=== PATIENT | female | born 1960 | race Caucasian/White ===

== ENCOUNTER 2017-01-23 09:11 | Emergency (ER) | payer MEDICAID | END 2017-01-23 09:30 | disposition left against medical advice (07) | DX: Z53.21 Procedure and treatment not carried out due to patient leaving prior to being seen by health care provider (principal) ==

== ENCOUNTER 2017-01-23 13:16 | Emergency (ER) | payer MEDICAID ==
[2017-01-23 13:34] VITALS: O2SAT 94
[2017-01-23] MEDS ORDERED: DEXAMETHASONE 4 MG TAB PO ONE (14:58)
--- NOTE | 2017-01-23 14:58 | EDPHY ---
H & P Stated Complaint: sore throat Time Seen by Provider: 01/23/17 13:36 HPI/ROS: Chief complaint: Sore throat History of present illness: This is a 56-year-old female who presents to the emergency department for evaluation of a sore throat. Patient reports she has had symptoms for the last 2 weeks. She did see her primary care doctor and was treated with a course of doxycycline. However symptoms persist. She is concerned because she is now losing her voice. She continues to have a runny nose. She has also noted a small nodule in her neck. She denies precipitating factors. She denies alleviating factors. She denies other associated signs or symptoms including no fevers, no cough, no difficulty swallowing or breathing, no rash. - Personal History Current Tetanus Diphtheria and Acellular Pertussis (TDAP): Yes - Medical/Surgical History Hx Asthma: Yes Hx Chronic Respiratory Disease: Yes Hx Diabetes: No Hx Cardiac Disease: No Hx Renal Disease: No Hx Cirrhosis: No Hx Alcoholism: No Hx HIV/AIDS: No Hx Splenectomy or Spleen Trauma: No Other PMH: sinus infection, dpression, ADHD,. Recent dx fibromyalgia ,chronic neck pain, asthma, PAUL - Social History Smoking Status: Never smoked - Physical Exam Exam: General Appearance: Alert, nontoxic. Eyes: Pupils equal and round no injection. ENT: Tympanic membranes, external auditory canals, external ears and surrounding soft tissue including over the mastoids are unremarkable. Nasopharynx is injected. There is clear rhinorrhea. Oropharynx is injected. There is no edema. There is no exudate. There is no asymmetry. The uvula is midline. No elevation of the tongue. There is no drooling, no trismus, no stridor. Patient does have decreased voice. Lymph: There is cervical adenopathy, this is well patient identifies as the nodule she has felt Respiratory: Chest is nontender, lungs are clear to auscultation. Cardiac: regular rate and rhythm. Musculoskeletal: Neck is supple and nontender. Extremities have full range of motion and are nontender. Skin: No rashes or lesions. Neurological: Alert and oriented x4. No meningismus. Constitutional: Initial Vital Signs Temperature (C) 36.9 C 01/23/17 13:29 Heart Rate 89 01/23/17 13:29 Respiratory Rate 16 01/23/17 13:29 Blood Pressure 154/101 H 05/07/17 13:29 O2 Sat (%) 94 01/23/17 13:29 O2 Delivery Mode Room Air Allergies/Adverse Reactions: Penicillins Allergy (Verified 12/06/14 18:58) tree nut [Nuts] Allergy (Verified 07/30/16 17:16) nuts Allergy (Uncoded 07/30/16 17:16) tuna Allergy (Uncoded 07/30/16 17:16) Home Medications: Medication Instructions Recorded Fluticasone/Salmeter 100/50Mcg 1 puffs IH BIDI 05/22/12 [Advair 100/50 (RX)] Methocarbamol [Robaxin 500 mg (RX)] 500 mg PO DAILY PRN 05/22/12 PARoxetine HCL [Paxil 20mg (RX)] 40 mg PO DAILY 05/22/12 clonazePAM [Klonopin] 2 mg PO DAILY 05/22/12 Adderall 10 MG (RX) 30 mg PO DAILY 11/10/13 Albuterol [Proventil Inhaler HFA 2 puffs IH Q4 PRN #1 mdi 11/24/14 (*)] Naproxen 500 mg PO DAILY PRN 07/30/16 SUMAtriptan [Imitrex 50 MG (RX)] 50 mg PO DAILY PRN 07/30/16 Medical Decision Making - Diagnostics Imaging Results: Imaging Impressions Soft Tissue Neck X-Ray 01/23/17 13:45 Impression: 1. No evidence of epiglottitis. 2. No prevertebral soft tissue swelling. 3. Moderate cervical spondylosis. Imaging: I viewed and interpreted images myself ED Course/Re-evaluation: Patient seen under the supervision of my secondary supervising physician Dr. Jose M Peoples. Patient presents to the emergency department for evaluation of persistent sore throat and now losing her voice. She is nontoxic. Afebrile and vital signs are stable. Physical exam is largely benign. No evidence of abscess formation. Soft tissue x-ray of the neck is unremarkable. Likely laryngitis. Will treat her symptomatically with Decadron. Do not believe antibiotics are warranted at this time. Patient is discharged home. Asked to follow up with her doctor for recheck. Return precautions are given. Patient voiced understanding and agreement with plan. Differential Diagnosis: Included but not limited to pharyngitis, pharyngitis, epiglottitis, [employer]ATING [employer], retropharyngeal abscess - Data Points Laboratory Results: 01/23/17 01/23/17 Unknown 15:05 Group A Strep Screen NEGATIVE (NEGATIVE) Group A Strep DNA Pending Medications Given: Discontinued Medications Dexamethasone (Decadron) 10 mg PO EDNOW ONE Stop: 01/23/17 14:59 Last Admin: 01/23/17 15:16 Dose: 10 mg Departure - Departure Disposition: Home, Routine, Self-Care Clinical Impression: Laryngitis Condition: Good Instructions: Laryngitis (ED) Additional Instructions: Follow-up with your primary care doctor for recheck If symptoms worsen or new symptoms develop return to the emergency room for recheck Referrals: Kelly Hoskins DO [Primary Care Provider] - As per Instructions
[2017-01-23 15:16] VITALS: BP 118/79; PULSE 70; RESP 14; TEMP 97.9
== END 2017-01-23 15:15 | disposition home or self-care (01) ==
DX: J04.0 Acute laryngitis (principal); J45.909 Unspecified asthma, uncomplicated

== ENCOUNTER 2017-02-20 18:38 | Emergency (ER) | payer MEDICAID ==
[2017-02-20 18:42] VITALS: TEMP 97.3
--- NOTE | 2017-02-20 18:47 | EDPHY ---
H & P Stated Complaint: diarrhea +SOB for a couple of wks Time Seen by Provider: 02/20/17 18:45 - Personal History Current Tetanus/Diphtheria Vaccine: Yes Current Tetanus Diphtheria and Acellular Pertussis (TDAP): Yes - Medical/Surgical History Hx Asthma: Yes Hx Chronic Respiratory Disease: Yes Hx Diabetes: No Hx Cardiac Disease: No Hx Renal Disease: No Hx Cirrhosis: No Hx Alcoholism: No Hx HIV/AIDS: No Hx Splenectomy or Spleen Trauma: No Other PMH: sinus infection, dpression, ADHD,. Recent dx fibromyalgia ,chronic neck pain, asthma, PAUL - Social History Smoking Status: Never smoked Constitutional: Initial Vital Signs Temperature (C) 36.3 C 02/20/17 18:40 Heart Rate 85 02/20/17 18:40 Respiratory Rate 14 02/20/17 18:40 Blood Pressure 142/54 H 02/20/17 18:40 O2 Sat (%) 98 02/20/17 18:40 Allergies/Adverse Reactions: Penicillins Allergy (Verified 12/06/14 18:58) tree nut [Nuts] Allergy (Verified 07/30/16 17:16) nuts Allergy (Uncoded 07/30/16 17:16) tuna Allergy (Uncoded 07/30/16 17:16) Home Medications: Medication Instructions Recorded Fluticasone/Salmeter 100/50Mcg 1 puffs IH BIDI 05/22/12 [Advair 100/50 (RX)] Methocarbamol [Robaxin 500 mg (RX)] 500 mg PO DAILY PRN 05/22/12 PARoxetine HCL [Paxil 20mg (RX)] 40 mg PO DAILY 05/22/12 clonazePAM [Klonopin] 2 mg PO DAILY 05/22/12 Adderall 10 MG (RX) 30 mg PO DAILY 11/10/13 Albuterol [Proventil Inhaler HFA 2 puffs IH Q4 PRN #1 mdi 11/24/14 (*)] Naproxen 500 mg PO DAILY PRN 07/30/16 SUMAtriptan [Imitrex 50 MG (RX)] 50 mg PO DAILY PRN 07/30/16 Medical Decision Making ED Course/Re-evaluation: CHIEF COMPLAINT: Dyspnea HISTORY OF PRESENT ILLNESS: The patient is a 56 y/o female, with a history of asthma, complaining of shortness of breath and is concerned she has pneumonia. She was diagnosed with laryngitis 6 weeks ago and complains of continued sore throat and dyspnea since that diagnosis. She stopped taking Klonopin, Paxil, and Adderall under the supervision of Dr. Hoskins about 3 weeks ago, and is wondering if she is continuing to go through withdrawal. She describes feeling like she has fluid in her lungs and wakes up "gasping for air." She denies cough , fever, vomiting, abdominal pain, diarrhea, chest pain. She does describe some vague malaise. REVIEW OF SYSTEMS: A 10 point review of systems was performed and is negative with the exception of the elements mentioned in the history of present illness. PHYSICAL EXAM: HR, BP, O2 Sat, RR. Temp noted General Appearance: Alert, well hydrated, appropriate, and non-toxic appearing. Head: Atraumatic without scalp tenderness or obvious injury Eyes: Pupils equal, round, reactive to light and accommodation, EOMI, no trauma , no injection. Nose: Atraumatic, no rhinorrhea, clear. Throat: There is no erythema or exudates, no lesions, normal tonsils, mucus membranes moist. Neck: Supple,nontender, no lymphadenopathy. Respiratory: No retractions, no distress, no wheezes, and no accessory muscle use. Lungs are clear to auscultation bilaterally. Cardiovascular: Regular rate and rhythm, no murmurs, rubs, or gallops. Good capillary refill all extremities. Gastrointestinal: Abdomen is soft, nontender, non-distended, no masses, no rebound, no guarding, no peritoneal signs. Musculoskeletal: Normal active ROM of all extremities, atraumatic. Neurological: Alert, appropriate, and interactive. nonfocal neuro exam. Skin: No rashes, good turgor, no nodules on palpation. Past medical history: Asthma, fibromyalgia, PAUL, sinusitis Past surgical history: denies Family history: noncontributory Social history: Lives in [place]. PCP: Dr. Hoskins DIFFERENTIAL DIAGNOSIS: The differential diagnosis for the patient's shortness of breath and hypoxemia included but was not limited to pneumonia, myocardial infarction, acute mountain sickness, high altitude pulmonary edema, congestive heart failure, and pulmonary embolus. MEDICAL DECISION MAKING: This is a 56 y/o female who presents with a 6-week history of dyspnea. She has been evaluated at the ED and by her PCP since symptom onset and reports she was diagnosed with laryngitis around the start of her symptoms. She's had no associated infectious symptoms and her lungs are completely clear on exam. She has a normal pharynx. She is afebrile. I suspect she is more likely suffering from anxiety after being taken off several psychiatric medications. My suspicion for acute respiratory or cardiac disease is low. Plan for ISTAT, strep swab, and saline nebulizer treatment. Reassessed patient. She feels improved and ready to go home. Labs unremarkable. She will be discharged home with recommendation to follow up with her PCP as needed for continued symptoms this week. Return precautions given. - Data Points Laboratory Results: 02/20/17 02/20/17 19:02 18:55 POC Hgb 15.3 gm/dL gm/dL (12.6-16.3) POC Hct 45 % % (38-47) POC Sodium 136 mEq/L mEq/L (134-144) POC Potassium 3.5 mEq/L mEq/L (3.3-5.0) POC Chloride 96 mEq/L L mEq/L (97-110) POC BUN 9 mg/dL mg/dL (7-23) POC Creatinine 0.6 mg/dL mg/dL (0.6-1.0) POC Glucose 89 mg/dL mg/dL (70-100) Group A Strep DNA Pending Point of Care Test Results: 02/20/17 19:02 POC Sodium 136 POC Potassium 3.5 POC Chloride 96 L POC BUN 9 POC Creatinine 0.6 POC Glucose 89 Departure - Departure Disposition: Home, Routine, Self-Care Clinical Impression: Dyspnea Qualifiers: Dyspnea type: shortness of breath Qualified Code(s): R06.02 - Shortness of breath Condition: Good Instructions: Dyspnea (ED) Additional Instructions: Follow up with your primary care provider for unimproved symptoms over the next 2-3 days. Return to the ED for any worsening of condition. Referrals: Kelly Hoskins DO [Primary Care Provider] - As per Instructions Report Scribed for: Maurizio Robert Report Scribed by: Celine Navarro Date of Report: 02/20/17 Time of Report: 19:47
[2017-02-20 20:55] VITALS: BP 132/76; PULSE 81; RESP 16; O2SAT 97
== END 2017-02-20 20:53 | disposition home or self-care (01) ==
DX: R06.00 Dyspnea, unspecified (principal); J45.909 Unspecified asthma, uncomplicated
CPT/HCPCS: 82947-QW

== ENCOUNTER 2017-02-28 16:09 | Emergency (ER) | payer MEDICAID ==
[2017-02-28 16:22] VITALS: BP 141/80; PULSE 89; RESP 18; TEMP 98.6; O2SAT 96
--- NOTE | 2017-02-28 16:55 | EDPHY ---
H & P Stated Complaint: sob chest tightness x 3 weeks, cant sleep, here same recently Time Seen by Provider: 02/28/17 16:25 HPI/ROS: CHIEF COMPLAINT: Insomnia HISTORY OF PRESENT ILLNESS: The patient is a 56-year-old female who comes to the emergency department complaining of in insomnia and stating that she feels like her body is going to break down. She has a several decade long history of insomnia. Several years ago in [place] she was placed on Klonopin and then Paxil to help her with her sleep. She was then placed on Adderall to help prefer more awake during the day. She also saw a sleep specialist to start her on CPAP but she states she cannot tolerate this. She states that about 2 months ago she stopped taking all of these medications because she does not feel like she needs to be on them. She however is had a very difficult time sleeping. She also states that she had a cold about 2 months ago and her voice change since that time and has not changed back. She has not had a fever. She has a history of asthma. She was seen here a week ago for shortness of breath and had a negative workup. She states that she feels short of breath now but that it is just anxiety. Her saturations are 97% on room air. No wheezing. No cough. REVIEW OF SYSTEMS: Constitutional: denies: chills, fever, recent illness, recent injury EENTM: denies: blurred vision, double vision, nose congestion Respiratory: See HPI Cardiac: denies: chest pain, irregular heart rate, lightheadedness, palpitations Gastrointestinal/Abdominal: denies: abdominal pain, diarrhea, nausea, vomiting, blood streaked stools Genitourinary: denies: dysuria, frequency, hematuria, pain Musculoskeletal: denies: joint pain, muscle pain Skin: denies: lesions, rash, jaundice, bruising Neurological: denies: headache, numbness, paresthesia, tingling, dizziness, weakness Hematologic/Lymphatic: denies: blood clots, easy bleeding, easy bruising Immunologic/allergic: denies: HIV/AIDS, transplant EXAM: GENERAL: Well-appearing, well-nourished and in no acute distress. HEAD: Atraumatic, normocephalic. EYES: Pupils equal round and reactive to light, extraocular movements intact, sclera anicteric, conjunctiva are normal. ENT: TMs normal, nares patent, oropharynx clear without exudates. Moist mucous membranes. NECK: Normal range of motion, supple without lymphadenopathy or JVD. LUNGS: Breath sounds clear to auscultation bilaterally and equal. No wheezes rales or rhonchi. HEART: Regular rate and rhythm without murmurs, rubs or gallops. ABDOMEN: Soft, nontender, normoactive bowel sounds. No guarding, no rebound. No masses appreciated. BACK: No CVA tenderness, no spinal tenderness, step-offs or deformities EXTREMITIES: Normal range of motion, no pitting or edema. No clubbing or cyanosis. NEUROLOGICAL: Cranial nerves II through XII grossly intact. Normal speech, normal gait. 5/5 strength, normal movement in all extremities, normal sensation PSYCH: Fatigued, oriented, normal affect SKIN: Warm, dry, normal turgor, no visible rashes or lesions. Source: Patient Exam Limitations: No limitations - Personal History Current Tetanus/Diphtheria Vaccine: Unsure Current Tetanus Diphtheria and Acellular Pertussis (TDAP): Unsure - Medical/Surgical History Hx Asthma: Yes Hx Chronic Respiratory Disease: Yes Hx Diabetes: No Hx Cardiac Disease: No Hx Renal Disease: No Hx Cirrhosis: No Hx Alcoholism: No Hx HIV/AIDS: No Hx Splenectomy or Spleen Trauma: No Other PMH: sinus infection, depression, ADHD-stopped adderall,. Recent dx fibromyalgia ,chronic neck pain, asthma, PAUL - Family History Significant Family History: No pertinent family hx - Social History Smoking Status: Never smoked Alcohol Use: Sober Drug Use: None Constitutional: Initial Vital Signs Temperature (C) 37.0 C 02/28/17 16:20 Heart Rate 89 02/28/17 16:20 Respiratory Rate 18 02/28/17 16:20 Blood Pressure 141/80 H 02/28/17 16:20 O2 Sat (%) 96 02/28/17 16:20 O2 Delivery Mode Room Air Allergies/Adverse Reactions: Penicillins Allergy (Verified 12/06/14 18:58) tree nut [Nuts] Allergy (Verified 07/30/16 17:16) nuts Allergy (Uncoded 07/30/16 17:16) tuna Allergy (Uncoded 07/30/16 17:16) Home Medications: Medication Instructions Recorded Fluticasone/Salmeter 100/50Mcg 1 puffs IH BIDI 09/03/12 [Advair 100/50 (RX)] Methocarbamol [Robaxin 500 mg (RX)] 500 mg PO DAILY PRN 05/22/12 Albuterol [Proventil Inhaler HFA 2 puffs IH Q4 PRN #1 mdi 11/24/14 (*)] SUMAtriptan [Imitrex 50 MG (RX)] 50 mg PO DAILY PRN 07/30/16 Promethazine HCl [Phenergan 25mg 25 mg PO HS PRN #10 tab 02/28/17 (RX)] Medical Decision Making ED Course/Re-evaluation: The patient is primarily complaining about insomnia and feeling like her "body is going to breakdown" if she cannot get enough sleep. She has stable vital signs and a normal exam. She is very resistant to going back on to sleep medications. I did suggest that she follow up with a sleep specialist to discuss other options. She agrees with this plan. She suggested taking Phenergan which is helped her with migraines in the past and also made her sleep. I will prescribe her a short course of Phenergan until she can follow up with the sleep specialist. She and her friend are happy with this plan and declines any further workup or testing. Differential Diagnosis: Partial list of the Differential diagnosis considered include but were not limited to; depression, insomnia, anxiety, bronchitis, withdrawal, asthma exacerbation and although unlikely based on the history and physical exam, I also considered pneumonia, pneumothorax, acute coronary disease. I discussed these differential diagnoses and the plan with the patient as well as the usual and expected course. The patient understands that the diagnosis is provisional and that in medicine we are not always correct and that further workup is often warranted. Usual and customary warnings were given. All of the patient's questions were answered. The patient was instructed to return to the emergency department should the symptoms at all worsen or return, otherwise to followup with the physician as we discussed. Departure - Departure Disposition: Home, Routine, Self-Care Clinical Impression: Insomnia disorder Qualifiers: Insomnia type: unspecified Qualified Code(s): G47.00 - Insomnia, unspecified Condition: Fair Instructions: Insomnia (ED) Referrals: NONE *PRIMARY CARE P,. [Primary Care Provider] - As per Instructions MITALI MATUTE MD [Medical Doctor] - As per Instructions Prescriptions: Promethazine HCl [Phenergan 25mg (RX)] 25 mg PO HS PRN #10 tab PRN Reason: Nausea & Vomiting
== END 2017-02-28 17:00 | disposition home or self-care (01) ==
DX: G47.00 Insomnia, unspecified (principal); J45.909 Unspecified asthma, uncomplicated

== ENCOUNTER 2017-03-06 08:49 | Emergency (ER) | payer MEDICAID ==
[2017-03-06] MEDS ORDERED: NS 1,000 ML IV ONE (09:05)
[2017-03-06] MEDS ORDERED: ONDANSETRON 4 MG/2 ML VIAL IVP ONE (09:05)
--- NOTE | 2017-03-06 09:10 | EDPHY ---
H & P Stated Complaint: low back pain/seen tuesday at ed/tuesday at pcp/not better Time Seen by Provider: 03/06/17 09:00 HPI/ROS: Chief complaint: Low back pain History of present illness: This is a 56-year-old female who presents to the emergency department for evaluation of low back pain. Patient reports symptoms have been going on for the last few weeks. She feels they are worsening. She is concerned she has a problem with her kidneys. She denies precipitating factors. She denies alleviating or aggravating factors. She denies associated signs or symptoms including no urinary symptoms, no nausea, vomiting, no diarrhea or constipation, no fevers. Further patient reports she developed some chest pain this morning when she woke up. She reports very quick, sharp pains in her chest that have resolved. She denies precipitating factors for the chest pain. She denies other associated signs or symptoms including no cough, no shortness of breath, no pain or swelling in the legs. There is no history of trauma. Review of systems: A 10 point review of systems was obtained and other than described above was negative - Personal History Current Tetanus/Diphtheria Vaccine: Yes - Medical/Surgical History Hx Asthma: Yes Hx Chronic Respiratory Disease: Yes Hx Diabetes: No Hx Cardiac Disease: No Hx Renal Disease: No Hx Cirrhosis: No Hx Alcoholism: No Hx HIV/AIDS: No Hx Splenectomy or Spleen Trauma: No Other PMH: sinus infection, depression, ADHD-stopped adderall,. Recent dx fibromyalgia ,chronic neck pain, asthma, PAUL - Social History Smoking Status: Never smoked - Physical Exam Exam: General Appearance: Alert, no distress. Eyes: Pupils equal and round no pallor or injection. ENT, Mouth: Mucous membranes moist. Respiratory: There are no retractions, lungs are clear to auscultation. Cardiovascular: Regular rate and rhythm. Gastrointestinal: Abdomen is soft and nontender, no masses, bowel sounds normal. Genitourinary: No CVA tenderness. No suprapubic tenderness. Neurological: Alert and oriented x4. Cranial nerves 2-12 grossly intact. Strength and sensation intact and symmetrical. Skin: Warm and dry, no rashes. Musculoskeletal: Neck is supple nontender. The spine and back are nontender to palpation, no crepitus, bony deformity or step-off appreciated. Extremities are symmetrical, full range of motion. Psychiatric: Patient is oriented X 3, there is no agitation. Constitutional: Initial Vital Signs Temperature (C) 36.4 C 03/06/17 08:53 Heart Rate 78 03/06/17 08:53 Respiratory Rate 16 03/06/17 08:53 Blood Pressure 114/86 H 03/06/17 08:53 O2 Sat (%) 97 03/06/17 08:53 O2 Delivery Mode Room Air Allergies/Adverse Reactions: Penicillins Allergy (Verified 03/06/17 08:53) tree nut [Nuts] Allergy (Verified 03/06/17 08:53) nuts Allergy (Uncoded 07/30/16 17:16) tuna Allergy (Uncoded 07/30/16 17:16) Home Medications: Medication Instructions Recorded Fluticasone/Salmeter 100/50Mcg 1 puffs IH BIDI 05/22/12 [Advair 100/50 (RX)] Methocarbamol [Robaxin 500 mg (RX)] 500 mg PO DAILY PRN 05/22/12 Albuterol [Proventil Inhaler HFA 2 puffs IH Q4 PRN #1 mdi 11/24/14 (*)] SUMAtriptan [Imitrex 50 MG (RX)] 50 mg PO DAILY PRN 07/30/16 Promethazine HCl [Phenergan 25mg 25 mg PO HS PRN #10 tab 02/28/17 (RX)] Medical Decision Making - Diagnostics Imaging Results: Imaging Impressions Chest X-Ray 03/06/17 10:43 Impression: No evidence of acute cardiopulmonary abnormality. Abdomen/Pelvis CT 03/06/17 11:59 Impression: 1. Mild diverticulosis without evidence for diverticulitis. Moderate constipation. 2. No evidence for nephrolithiasis or hydronephrosis. 3. Mild multilevel degenerative change lumbar spine. Results called and discussed with Jesus Dunne PA-C on March 06, 2017 at 1316 hours. Attention: This CT examination is specifically designed to evaluate patients who are clinically suspected of having acute obstructive uropathy. This examination does not use radiographic contrast, and as such, provides only a limited evaluation of the abdomen, pelvis, and retroperitoneum. If there is further clinical suspicion for pathological conditions other than obstructive uropathy, a complete CT evaluation of the abdomen and pelvis utilizing intravenous, oral, and rectal contrast should be considered. Imaging: Discussed imaging studies w/ call center recruiter Radiologist ED Course/Re-evaluation: Patient is discussed with my primary supervising physician Dr. Deepthi Arellano. Patient presents to the emergency department for low back pain. On presentation she is nontoxic. Afebrile and vital signs are stable. Physical exam is benign. Abdominal laboratory studies are largely unremarkable. Urinalysis does show hematuria, patient is not currently on her menstrual cycle. A CT scan of the abdomen and pelvis is pursued for possible nephrolithiasis, no acute findings are noted. Further patient with sharp chest pain intermittently that has resolved. His atypical chest pain. Again vital signs are stable. Physical exam is benign. Troponin negative, EKG unremarkable and chest x-ray negative. Perc negative for PE. Do not appreciate need for further emergency department intervention or inpatient management. I have discussed is not clear as to the exact cause of her symptoms and she needs to follow up with her primary care doctor for continued evaluation and care. Strict return precautions are given. Patient voiced understanding and agreement with plan. Differential Diagnosis: Included but not limited to musculoskeletal pain, cystitis, pyelonephritis, nephrolithiasis, intra-abdominal pathology such as colitis, gastritis, biliary tract disease or pancreatitis as well as musculoskeletal pain of the chest, pulmonary infections, pneumothorax, cardiac dysrhythmias, unlikely ACS or PE, patient is perc negative for PE - Data Points Laboratory Results: Laboratory Results 03/06/17 09:45 03/06/17 09:45 03/06/17 03/06/17 03/06/17 09:45 09:45 09:45 WBC 7.75 10^3/uL 10^3/uL (3.80-9.50) RBC 4.47 10^6/uL 10^6/uL (4.18-5.33) Hgb 14.5 g/dL g/dL (12.6-16.3) Hct 42.9 % % (38.0-47.0) MCV 96.0 fL fL (81.5-99.8) MCH 32.4 pg pg (27.9-34.1) MCHC 33.8 g/dL g/dL (32.4-36.7) RDW 12.3 % % (11.5-15.2) Plt Count 269 10^3/uL 10^3/uL (150-400) MPV 9.4 fL fL (8.7-11.7) Neut % (Auto) 63.5 % % (39.3-74.2) Lymph % (Auto) 16.6 % % (15.0-45.0) [place] % (Auto) 7.6 % % (4.5-13.0) Eos % (Auto) 11.6 % H % (0.6-7.6) Baso % (Auto) 0.4 % % (0.3-1.7) Nucleat RBC Rel Count 0.0 % % (0.0-0.2) Absolute Neuts (auto) 4.92 10^3/uL 10^3/uL (1.70-6.50) Absolute Lymphs (auto) 1.29 10^3/uL 10^3/uL (1.00-3.00) Absolute Monos (auto) 0.59 10^3/uL 10^3/uL (0.30-0.80) Absolute Eos (auto) 0.90 10^3/uL H 10^3/uL (0.03-0.40) Absolute Basos (auto) 0.03 10^3/uL 10^3/uL (0.02-0.10) Absolute Nucleated RBC 0.00 10^3/uL 10^3/uL (0-0.01) Immature Gran % 0.3 % % (0.0-1.1) Immature Gran # 0.02 10^3/uL 10^3/uL (0.00-0.10) Sodium 136 mEq/L mEq/L (134-144) Potassium 4.2 mEq/L mEq/L (3.5-5.2) Chloride 102 mEq/L mEq/L (97-110) Carbon Dioxide 25 mEq/l mEq/l (22-31) Anion Gap 9 mEq/L mEq/L (8-16) BUN 22 mg/dL mg/dL (7-23) Creatinine 0.8 mg/dL mg/dL (0.6-1.0) Estimated GFR > 60 Glucose 88 mg/dL mg/dL (70-100) Calcium 10.0 mg/dL mg/dL (8.5-10.4) Total Bilirubin 0.6 mg/dL mg/dL (0.1-1.4) Conjugated Bilirubin 0.3 mg/dL mg/dL (0.0-0.5) Unconjugated Bilirubin 0.3 mg/dL mg/dL (0.0-1.1) AST 23 IU/L IU/L (14-46) ALT 28 IU/L IU/L (9-52) Alkaline Phosphatase 95 IU/L IU/L (38-126) Troponin I < 0.012 ng/mL ng/mL (0-0.034) Total Protein 7.0 g/dL g/dL (6.3-8.2) Albumin 4.1 g/dL g/dL (3.5-5.0) Lipase 149.0 IU/L IU/L (23-300) Beta HCG, Qual NEGATIVE Urine Color Urine Appearance Urine pH Ur Specific [place] Urine Protein Urine Ketones Urine Blood Urine Nitrate Urine Bilirubin Urine Urobilinogen Ur Leukocyte Esterase Urine RBC Urine WBC Ur Epithelial Cells Urine Mucus Urine Glucose 03/06/17 09:08 WBC RBC Hgb Hct MCV MCH MCHC RDW Plt Count MPV Neut % (Auto) Lymph % (Auto) [place] % (Auto) Eos % (Auto) Baso % (Auto) Nucleat RBC Rel Count Absolute Neuts (auto) Absolute Lymphs (auto) Absolute Monos (auto) Absolute Eos (auto) Absolute Basos (auto) Absolute Nucleated RBC Immature Gran % Immature Gran # Sodium Potassium Chloride Carbon Dioxide Anion Gap BUN Creatinine Estimated GFR Glucose Calcium Total Bilirubin Conjugated Bilirubin Unconjugated Bilirubin AST ALT Alkaline Phosphatase Troponin I Total Protein Albumin Lipase Beta HCG, Qual Urine Color YELLOW Urine Appearance CLEAR Urine pH 5.0 (5.0-7.5) Ur Specific [place] 1.014 (1.002-1.030) Urine Protein NEGATIVE (NEGATIVE) Urine Ketones NEGATIVE (NEGATIVE) Urine Blood 1+ H (NEGATIVE) Urine Nitrate NEGATIVE (NEGATIVE) Urine Bilirubin NEGATIVE (NEGATIVE) Urine Urobilinogen NEGATIVE EU EU (0.2-1.0) Ur Leukocyte Esterase NEGATIVE (NEGATIVE) Urine RBC 25-50 /hpf H /hpf (0-3) Urine WBC 1-3 /hpf /hpf (0-3) Ur Epithelial Cells NONE SEEN /lpf /lpf (NONE-1+) Urine Mucus TRACE /lpf /lpf (NONE-1+) Urine Glucose NEGATIVE (NEGATIVE) Medications Given: Discontinued Medications Sodium Chloride (Ns) 1,000 mls @ 0 mls/hr IV ONCE ONE; Wide Open PRN Reason: Protocol Stop: 03/06/17 09:06 Last Admin: 03/06/17 09:35 Dose: 1,000 mls Ondansetron HCl (Zofran) 4 mg IVP EDNOW ONE Stop: 03/06/17 09:06 Last Admin: 03/06/17 09:36 Dose: 4 mg Departure - Departure Disposition: Home, Routine, Self-Care Clinical Impression: Back pain, Chest pain, Hematuria Condition: Good Instructions: Chest Pain (ED), Hematuria (ED), Acute Low Back Pain (ED) Additional Instructions: Follow-up with your primary care doctor for continued evaluation and care If symptoms worsen or new symptoms develop return to the emergency room for recheck Referrals: Kelly Hoskins DO [Primary Care Provider] - As per Instructions
--- NOTE | 2017-03-06 09:23 | CPEKG ---
Heart Rate: 71 RR Interval: 845 P-R Interval: 128 QRSD Interval: 80 QT Interval: 384 QTC Interval: 418 P [place]: 60 QRS [place]: 44 T Wave [place]: 42 EKG Severity - OTHERWISE NORMAL ECG - EKG Impression: SINUS RHYTHM EKG Impression: VENTRICULAR PREMATURE COMPLEX Electronically Signed By: Deepthi Arellnao 06-Mar-2017 11:46:16
[2017-03-06 09:56] LABS: % IMMATURE GRANULYOCYTES 0.3 % (0.0-1.1); ABSOLUTE IMMATURE GRANULOCYTES 0.02 10^3/uL (0.00-0.10); ADD DIFF? NO; ADD MORPH? NO; ADD SCAN? NO; ATYPICAL LYMPHOCYTE FLAG 10 (0-99); FRAGMENT RBC FLAG 0 (0-99); HEMATOCRIT 42.9 % (38.0-47.0); HEMOGLOBIN 14.5 g/dL (12.6-16.3); LEFT SHIFT FLG 0 (0-99); LIPEMIA HEMOLYSIS FLAG 90 (0-99); MEAN CELL HEMOGLOBIN 32.4 pg (27.9-34.1); MEAN CELL HEMOGLOBIN CONCENTR. 33.8 g/dL (32.4-36.7); MEAN PLATELET VOLUME 9.4 fL (8.7-11.7); PLATELET CLUMPS FLAG 0 (0-99); PLATELET COUNT 269 10^3/uL (150-400); RED BLOOD CELL COUNT 4.47 10^6/uL (4.18-5.33); RED CELL DISTRIBUTION WIDTH 12.3 % (11.5-15.2)
[2017-03-06 10:09] LABS: ALANINE AMINOTRANSFERASE 28 IU/L (9-52); ALBUMIN 4.1 g/dL (3.5-5.0); ALKALINE PHOSPHATASE 95 IU/L (38-126); ANION GAP 9 mEq/L (8-16); ASPARTATE AMINOTRANSFERASE 23 IU/L (14-46); BILIRUBIN,TOTAL 0.6 mg/dL (0.1-1.4); BILIRUBIN-CONJUGATED 0.3 mg/dL (0.0-0.5); BILIRUBIN-UNCONJUGATED 0.3 mg/dL (0.0-1.1); CARBON DIOXIDE 25 mEq/l (22-31); CHLORIDE 102 mEq/L (97-110); CREATININE 0.8 mg/dL (0.6-1.0); GLOMERULAR FILTRATION RATE > 60; GLUCOSE 88 mg/dL (70-100); POTASSIUM 4.2 mEq/L (3.5-5.2); SODIUM 136 mEq/L (134-144)
[2017-03-06 10:19] LABS: TROPONIN I < 0.012 ng/mL (0-0.034)
[2017-03-06 11:52] LABS: COLOR YELLOW; LEUKOCYTE ESTERASE,URINE NEGATIVE (NEGATIVE); NITRITE,URINE NEGATIVE (NEGATIVE)
[2017-03-06 11:55] LABS: MUCUS TRACE /lpf (NONE-1+); RBC,URINE 25-50 /hpf (0-3)
[2017-03-06 13:53] VITALS: BP 128/72; PULSE 81; RESP 16; TEMP 96.8; O2SAT 98
== END 2017-03-06 13:53 | disposition home or self-care (01) ==
DX: M54.5 Low back pain (principal); R07.9 Chest pain, unspecified; R31.9 Hematuria, unspecified; J45.909 Unspecified asthma, uncomplicated
CPT/HCPCS: 96374; J2405

== ENCOUNTER 2017-03-19 16:37 | Emergency (ER) | payer MEDICAID ==
[2017-03-19 16:43] VITALS: BP 153/97; PULSE 81; RESP 20; TEMP 98.1; O2SAT 97
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
== END 2017-03-19 18:13 | disposition home or self-care (01) ==
DX: F41.9 Anxiety disorder, unspecified (principal); J45.909 Unspecified asthma, uncomplicated
CPT/HCPCS: 80305

== ENCOUNTER 2017-03-23 10:03 | Observation (INO) | payer MEDICAID ==
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
--- NOTE | 2017-03-23 10:19 | CPEKG ---
Heart Rate: 73 RR Interval: 822 P-R Interval: 136 QRSD Interval: 86 QT Interval: 368 QTC Interval: 406 P [place]: 65 QRS [place]: 62 T Wave [place]: 41 EKG Severity - NORMAL ECG - EKG Impression: SINUS RHYTHM Electronically Signed By: Maurizio Robert 23-Mar-2017 14:47:37
[2017-03-23 10:51] LABS: % IMMATURE GRANULYOCYTES 0.3 % (0.0-1.1); ABSOLUTE IMMATURE GRANULOCYTES 0.02 10^3/uL (0.00-0.10); ADD DIFF? NO; ADD MORPH? NO; ADD SCAN? NO; ATYPICAL LYMPHOCYTE FLAG 20 (0-99); FRAGMENT RBC FLAG 0 (0-99); HEMATOCRIT 43.5 % (38.0-47.0); HEMOGLOBIN 15.1 g/dL (12.6-16.3); LEFT SHIFT FLG 0 (0-99); LIPEMIA HEMOLYSIS FLAG 90 (0-99); MEAN CELL HEMOGLOBIN 32.7 pg (27.9-34.1); MEAN CELL HEMOGLOBIN CONCENTR. 34.7 g/dL (32.4-36.7); MEAN CELL VOLUME 94.2 fL (81.5-99.8); MEAN PLATELET VOLUME 9.5 fL (8.7-11.7); PLATELET CLUMPS FLAG 0 (0-99); PLATELET COUNT 304 10^3/uL (150-400); RED BLOOD CELL COUNT 4.62 10^6/uL (4.18-5.33); RED CELL DISTRIBUTION WIDTH 12.3 % (11.5-15.2)
[2017-03-23 11:09] LABS: ANION GAP 11 mEq/L (8-16); CALCIUM 10.1 mg/dL (8.5-10.4); CARBON DIOXIDE 23 mEq/l (22-31); CHLORIDE 104 mEq/L (97-110); CREATININE 0.9 mg/dL (0.6-1.0); GLOMERULAR FILTRATION RATE > 60; GLUCOSE 95 mg/dL (70-100); POTASSIUM 4.1 mEq/L (3.5-5.2); SODIUM 138 mEq/L (134-144)
[2017-03-23] MEDS ORDERED: ACETAMINOPHEN 325 MG TAB PO PRN (13:21)
[2017-03-23] MEDS ORDERED: IBUPROFEN 200 MG TAB PO PRN (13:21)
[2017-03-23] MEDS ORDERED: ONDANSETRON DISINTEGRATING 4 MG TAB PO PRN (13:21)
[2017-03-23] MEDS ORDERED: ALBUTEROL 60 PUFFS/8 GM MDI IH PRN (17:58)
[2017-03-23] MEDS ORDERED: NS W/ 20 KCl/L 1,000 ML IV SCH (18:00)
--- NOTE | 2017-03-23 19:51 | GHP ---
[f rep st] HISTORY AND PHYSICAL DATE OF ADMISSION: 03/23/2017 CHIEF COMPLAINT: "Feels bizarre". HISTORY OF PRESENT ILLNESS: The patient is a 56-year-old female who has been to the emergency department and her primary doctor's several times in the last few months because of having trouble coming off chronic benzodiazepine and SSRI treatment. She has taken Klonopin for 23 year and Paxil for 20 years. At the suggestion of a [place] physician friend, she has been slowly weaning off these medications over the last several months. She says she has not taken any Klonopin or Paxil for about 7 weeks. She has similarly been trying to wean herself off Adderall and says she has not taken that for about 5 weeks. She said she has felt 'pretty terrible' during this whole process. She said for a brief moment on Tuesday, she felt "back to her old self" but then shortly thereafter started to feel "bizarre" again. By Tuesday she was having spasms, felt uncoordinated, like she was drunk, was feeling dizzy and confused. She came into the emergency department on Tuesday for these symptoms, was evaluated and discharged home to follow up with her primary care provider at [facility]. She took a tablet of Lexapro on Tuesday (this had been given to her about 10 days prior by her primary care provider, and she had only taken 2 dosages since then). She did not think that helped at all, so she went in to see the [facility] on Tuesday (2 days ago). She did not see her regular provider that day, but the provider she saw asked her to try a tablet of olanzapine. She is not sure of the milligram dosage, but she said that she took about 1/4 of a tablet. She said this did not really seem to help and she woke up on Tuesday feeling 'very bizarre' again. She describes tripping in her bedroom and waking up at an unknown time later, she has some bruising on legs and soreness from the fall. Today she was trying to "tough it out" and get in to see her primary doctor, but they were unable to see her. She started to feel worse, like her "head was not attached". She was very dizzy, which she describes more as lightheadedness than vertiginous feeling. She was unable to get a friend to drive her to the emergency department so she ended up calling the ambulance for transport. She has had some nausea with occasional vomiting. She denies any fever, chest pain or shortness of breath. She has had an intermittent headache. She denies focal numbness or weakness, but she feels like her calfs and legs are swollen and "do not feel right". She says she is very sensitive to medications and almost always takes half of whatever she is prescribed. She was given a 20 mg dose of Lexapro in the emergency department, which was two 10mg tablets. However, she says she did not take that full dose, she instead took half of each of the tablets- total of 10 mg dose. She has sleep apnea, seen by [facility]. She stopped using her CPAP about 8 or 9 weeks ago also, while she was also weaning off these medications. She says that her physician friend was giving her "relaxation treatments" and had encouraged her to not use her CPAP machine because she needed to 'train herself' to breathe on her own. She has had extreme fatigue. She denied any seizure-like activity. She denies any tongue laceration or soreness in her mouth after fall/LOC yesterday. She was regularly wearing a CPAP prior to 2 months ago. She did not bring it to the hospital with her as unable to tolerate it now because of anxiety. She was admitted to hospital bc of recent falls, further evaluation of neurologic symptoms, and she felt unsafe at home. PAST MEDICAL HISTORY: Mild persistent asthma, depression/anxiety, migraine headaches, obstructive sleep apnea, primary care provider is [facility]. PAST SURGICAL HISTORY: She denies. CHRONIC MEDICATIONS: Advair Diskus twice a day, Imitrex as needed, albuterol as needed, Lexapro 5 mg tablet daily (but she has not been taking this daily, she has only taken about 3 doses in the last week). ALLERGIES: Benzodiazepines and penicillin (benzodiazepines is not a true allergy for her, she just never wants to take it again). SOCIAL HISTORY: She denies any tobacco, alcohol or drug use. OBJECTIVE: VITAL SIGNS: Blood pressure was 163/90 initially but was 129/71 when last checked, heart rate was 90 initially but was 64 when last checked, respiratory rate was 20 initially but was 18 when last checked, she is afebrile at 98.8, she was 97% on room air. GENERAL: She is a very pleasant, tired appearing female in no apparent distress. HEENT: Normocephalic, atraumatic. Pupils equal, round and reactive to light and accommodation. Extraocular muscles are intact. Oropharynx is moist. No trauma noted. NECK: Supple, no lymphadenopathy, some noted spasm and discomfort in the cervical paraspinous musculature. LUNGS: Clear to auscultation bilaterally, no rhonchi, wheezes, coughing. HEART: Regular rate and rhythm without murmur, rub or gallop. ABDOMEN: Soft, normoactive bowel sounds, nontender and nondistended. No hepatosplenomegaly appreciated. BREASTS: Exam deferred. : Exam deferred. NEURO: Cranial nerves 2-12 are grossly intact. Moves all extremities. Strength 5/5 in all extremities. Romberg was not examined. Nonfocal neuro exam. MUSCULOSKELETAL: Moves all extremities. No noted peripheral edema. SKIN: No obvious rash. PSYCH: anxious but linear thought process LABORATORY DATA: White blood cell count was 7.41 with an H and H of 15.1 and 43.5, platelet count of 304. Sodium 138, potassium 4.1, chloride 104, CO2 23, BUN of 19, creatinine 0.9, glucose of 75, calcium of 10.1. Head and neck CT were done, which showed no intracranial abnormality. She did have a small mucosal retention cyst in the right maxilla, degenerative disk disease at C4-5, C5-6 with some mild foraminal encroachment. ASSESSMENT AND PLAN: 1. Anti depressent withdrawal syndrome. Discussed at length with her that symptoms are very suggestive of SSRI withdrawal symptoms/syndrome. She was already given a dose of Lexapro in the emergency department, but she is very nervous to continue. However, after a long discussion of different SSRI benefits and risks, she seems very agreeable to continue to take a daily SSRI, but at a very low dose. Have ordered 2.5 mg as she felt very comfortable with that dosing. Strongly recommended that she takes this every day for at least 1 to 2 weeks, and then follow up with her primary care physician or a psychiatrist to discuss med management in general. 2. PAUL. I have also discussed with her that I suspect the symptoms are probably exacerbated by extreme sleep deprivation secondary to her not using her CPAP for almost 2 months. She says at this point she is actually too anxious to use her CPAP and does not want to use the CPAP here in the hospital because it is too hard for her to keep it in place with her anxiety. She was very amenable to using oxygen by nasal cannula, so I placed 2 L of oxygen by nasal cannula on her to use continuously. She is already established with Vesna at [facility] and have strongly encouraged her to follow up quickly after leaving the hospital to reestablish CPAP use. Long discussion with her about different sleep techniques. She was agreeable to trying a very small dose of Flexeril as she also has neck spasms and pain secondary to her fall yesterday. I have warned her this will cause drowsiness and she felt comfortable with this plan. Hopefully she will feel better in the morning and will be able to discharge home with oral Flexeril as needed, Lexapro at a very low dose and a quick followup with her primary care provider and sleep care provider. 3. Depression/anxiety. Please see above. She has had multiple ER visits for various things since January, which would coincide with her coming off these medications. Prior to that she seems to come in at least every 1-2 months. She does have primary care at [facility], Dr. Kelly Hoskins. Strongly suggested to her that she continue the low dose of SSRI to help her manage her anxiety and depression, but do support her decision to come off chronic benzodiazepines, as that is certainly not advisable given her underlying sleep disorder. She states understanding of this discussion. 4. Mild persistent asthma. She did not bring her Advair Diskus with her to the hospital, but she did take a dose this morning. Have ordered albuterol if needed, and she can restart her Advair at home. 5. Fluids/Electrolytes/Nutrition. She clinically feels dehydrated, and there may be a component of dehydration given her recent nausea and dizziness. IV hydration will be continued overnight. Will check a urinalysis also. 6. Deep venous thrombosis prophylaxis. As she is very sensitive to medications and very nervous about medications, decided to not use any pharmacologic deep venous thrombosis prophylaxis. I have encouraged early ambulation. Full Code, PCP [facility] Dr. Hoskins. DISPOSITION: Hopeful discharge in the morning. /[id number]/MODL MTDD
[2017-03-23 20:52] LABS: COLOR PALE YELLOW; LEUKOCYTE ESTERASE,URINE NEGATIVE (NEGATIVE); NITRITE,URINE NEGATIVE (NEGATIVE)
[2017-03-23] MEDS ORDERED: CYCLOBENZAPRINE 10 MG TAB PO SCH (21:00)
[2017-03-23 22:41] VITALS: O2SAT 99
[2017-03-24 04:38] VITALS: PULSE 67
[2017-03-24 08:16] LABS: ANION GAP 8 mEq/L (8-16); CALCIUM 8.9 mg/dL (8.5-10.4); CARBON DIOXIDE 23 mEq/l (22-31); CHLORIDE 109 mEq/L (97-110); CREATININE 0.7 mg/dL (0.6-1.0); GLOMERULAR FILTRATION RATE > 60; GLUCOSE 89 mg/dL (70-100); POTASSIUM 4.6 mEq/L (3.5-5.2); SODIUM 140 mEq/L (134-144)
[2017-03-24 08:52] VITALS: BP 121/68; RESP 16; TEMP 98.1
[2017-03-24] MEDS ORDERED: ENOXAPARIN 40 MG/0.4 ML SYR SC SCH (09:00)
[2017-03-24] MEDS ORDERED: ESCITALOPRAM OXALATE 10 MG TAB PO SCH (09:00)
--- NOTE | 2017-03-24 10:43 | GDS ---
[f rep st] DISCHARGE SUMMARY DISCHARGE DIAGNOSES: 1. Possible antidepressant withdrawal syndrome. 2. Untreated obstructive sleep apnea. 3. Depression and anxiety. 4. History of asthma. HISTORY: This is a 56-year-old female who came off of Paxil and Klonopin that she had been on for 2 3 years. She also at the same time stopped using CPAP machine. She presented to the Emergency Depa rtment with feeling dizzy and confused, foggy. She also complains of having heavy legs. HOSPITAL COURSE: The patient was admitted and thought she might have symptoms of antidepressant wit hdrawal syndrome. She was stated on a small dose of Lexapro, which she has tolerated. She feels th at not using her CPAP for the last couple months is the main reason that she is not feeling well. S he is committed to begin using that when she gets home. She is doing well and will be discharged ho me today. DISPOSITION: Home. DISCHARGE MEDICATIONS: She is to continue Lexapro 2.5 mg daily. DISCHARGE INSTRUCTIONS: She is instructed to use her CPAP machine as well. /[id number]/MODL
[2017-03-24] MEDS ORDERED: ESCITALOPRAM OXALATE 10 MG TAB PO ONE (12:11)
== END 2017-03-24 11:20 | disposition home or self-care (01) ==
LOC: EDUNIT# → F3E 14:32
PROVIDERS: ADMIT Family Medicine; ATTEND Internal Medicine
DX: R55 Syncope and collapse (principal); F19.230 Other psychoactive substance dependence with withdrawal, uncomplicated; G47.33 Obstructive sleep apnea (adult) (pediatric); F41.8 Other specified anxiety disorders; M79.7 Fibromyalgia; M54.2 Cervicalgia; J45.909 Unspecified asthma, uncomplicated
CPT/HCPCS: 70450; 72125; 93005; 97165; 99285; G0378; J1650

== ENCOUNTER → 2017-04-01 | Outpatient (CLI) | payer MEDICAID | LOC: FIMAGING 09:49 | PROVIDERS: ATTEND Family Medicine | DX: M53.87 Other specified dorsopathies, lumbosacral region (principal) ==

== ENCOUNTER 2017-04-20 12:17 | Emergency (ER) | payer MEDICAID ==
--- NOTE | 2017-04-20 12:54 | EDPHY ---
Mental Health General Narrative: CHIEF COMPLAINT: M1 hold HISTORY OF PRESENT ILLNESS: 56-year-old female presents to the emergency department from [facility] on an M1 hold for suicidal ideations. Patient reports suicidal ideations intermittently for the last week though states she does not want to and would never actually commit suicide. Patient was weaned of Paxil, Klonopin and Adderall 2 months ago. She started Lexapro 3 weeks ago. Patient reports she feels hopeless and has nothing to do at home with no structure. She applied for a job last week and will here today if she got this job. Patient states she has sleep apnea, she went the last 2 months without using her CPAP machine so was sleep deprived. She has been using this for the past 3 weeks and has been feeling a little bit better. Patient denies chest pain or shortness of breath. She denies drug or alcohol use. REVIEW OF SYSTEMS: A comprehensive 10 point review of systems is otherwise negative aside from elements mentioned in the history of present illness. Physical Exam Gen: Alert and Oriented, NAD HEENT: PERRL, moist mucous membranes NECK: no meningismus CV: regular rate and regular rhythm PULM: CTAB, no wheezes ABDOMEN: soft, non tender to palpation, BS present BACK: No CVA tenderness NEURO: Neurologically grossly intact EXTREMITIES: normal appearing SKIN: no rash or break in skin on exposed skin PSYCH: answers questions appropriately. Denies suicidal ideation, homicidal ideation, auditory and visual hallucinations Smoking Status: Never smoked Time Patient Placed on M1 Hold: 11:42 Medical Decision Making: Patient has been evaluated by mental health. They feel she is safe to be discharged home. The patient also feels like she is safe to be discharged home. She has been given resources to establish care with [facility]. Patient has a follow-up appointment with her primary care doctor. Patient is given return precautions. Time Medically Cleared for Psychiatric Evaluation: 13:55 - Objective Vital Signs: Initial Vital Signs Temperature (C) 36.7 C 04/20/17 12:20 Heart Rate 73 04/20/17 12:20 Respiratory Rate 20 04/20/17 12:20 Blood Pressure 142/94 H 04/20/17 12:20 O2 Sat (%) 95 04/20/17 12:20 O2 Delivery Mode Room Air Allergies/Adverse Reactions: Benzodiazepines Allergy (Verified 03/23/17 13:37) Penicillins Allergy (Verified 03/06/17 08:53) tree nut [Nuts] Allergy (Verified 03/06/17 08:53) nuts Allergy (Uncoded 07/30/16 17:16) tuna Allergy (Uncoded 07/30/16 17:16) Home Medications: Medication Instructions Recorded Fluticasone/Salmeter 100/50Mcg 1 puffs IH BID 03/23/17 [Advair 100/50 (*)] Escitalopram Oxalate [Lexapro 10 2.5 mg PO DAILY #10 tab 03/24/17 MG] Laboratory Results: Laboratory Results 04/20/17 12:56 04/20/17 12:56 04/20/17 04/20/17 04/20/17 12:56 12:56 12:56 WBC 5.35 10^3/uL 10^3/uL (3.80-9.50) RBC 4.10 10^6/uL L 10^6/uL (4.18-5.33) Hgb 13.4 g/dL g/dL (12.6-16.3) Hct 39.1 % % (38.0-47.0) MCV 95.4 fL fL (81.5-99.8) MCH 32.7 pg pg (27.9-34.1) MCHC 34.3 g/dL g/dL (32.4-36.7) RDW 12.8 % % (11.5-15.2) Plt Count 277 10^3/uL 10^3/uL (150-400) MPV 9.2 fL fL (8.7-11.7) Neut % (Auto) 60.5 % % (39.3-74.2) Lymph % (Auto) 20.2 % % (15.0-45.0) Simpson % (Auto) 7.9 % % (4.5-13.0) Eos % (Auto) 10.5 % H % (0.6-7.6) Baso % (Auto) 0.7 % % (0.3-1.7) Nucleat RBC Rel Count 0.0 % % (0.0-0.2) Absolute Neuts (auto) 3.24 10^3/uL 10^3/uL (1.70-6.50) Absolute Lymphs (auto) 1.08 10^3/uL 10^3/uL (1.00-3.00) Absolute Monos (auto) 0.42 10^3/uL 10^3/uL (0.30-0.80) Absolute Eos (auto) 0.56 10^3/uL H 10^3/uL (0.03-0.40) Absolute Basos (auto) 0.04 10^3/uL 10^3/uL (0.02-0.10) Absolute Nucleated RBC 0.00 10^3/uL 10^3/uL (0-0.01) Immature Gran % 0.2 % % (0.0-1.1) Immature Gran # 0.01 10^3/uL 10^3/uL (0.00-0.10) Sodium 144 mEq/L mEq/L (134-144) Potassium 3.7 mEq/L mEq/L (3.5-5.2) Chloride 109 mEq/L mEq/L (97-110) Carbon Dioxide 22 mEq/l mEq/l (22-31) Anion Gap 13 mEq/L mEq/L (8-16) BUN 10 mg/dL mg/dL (7-23) Creatinine 0.6 mg/dL mg/dL (0.6-1.0) Estimated GFR > 60 Glucose 96 mg/dL mg/dL (70-100) Calcium 9.8 mg/dL mg/dL (8.5-10.4) Beta HCG, Qual NEGATIVE Urine Opiates Screen Urine Barbiturates Ur Phencyclidine Scrn Ur Amphetamine Screen U Benzodiazepines Scrn Urine Cocaine Screen U Marijuana (THC) Screen Ethyl Alcohol < 10 mg/dL mg/dL (0-10) 04/20/17 12:30 WBC RBC Hgb Hct MCV MCH MCHC RDW Plt Count MPV Neut % (Auto) Lymph % (Auto) Simpson % (Auto) Eos % (Auto) Baso % (Auto) Nucleat RBC Rel Count Absolute Neuts (auto) Absolute Lymphs (auto) Absolute Monos (auto) Absolute Eos (auto) Absolute Basos (auto) Absolute Nucleated RBC Immature Gran % Immature Gran # Sodium Potassium Chloride Carbon Dioxide Anion Gap BUN Creatinine Estimated GFR Glucose Calcium Beta HCG, Qual Urine Opiates Screen NEGATIVE (NEGATIVE) Urine Barbiturates NEGATIVE (NEGATIVE) Ur Phencyclidine Scrn NEGATIVE (NEGATIVE) Ur Amphetamine Screen NEGATIVE (NEGATIVE) U Benzodiazepines Scrn NEGATIVE (NEGATIVE) Urine Cocaine Screen NEGATIVE (NEGATIVE) U Marijuana (THC) Screen NEGATIVE (NEGATIVE) Ethyl Alcohol Departure - Departure Disposition: Home, Routine, Self-Care Clinical Impression: Severe major depression Condition: Good Instructions: Depression (ED), Suicide Prevention for Adults (ED) Additional Instructions: 1. Please follow-up with the mental health resources provided in the ED today. 2. [facility] does operate a 11/04 psychiatric crisis unit located at [facility]. The telephone number for the 24 hour crisis center is [phone]. 3. Please return to the ED if you are feeling suicidal, having thoughts of harming yourself/others or should you feel unsafe or have worsening symptoms. Referrals: [facility],. [Clinic] - As per Instructions
[2017-04-20 13:04] LABS: % IMMATURE GRANULYOCYTES 0.2 % (0.0-1.1); ABSOLUTE IMMATURE GRANULOCYTES 0.01 10^3/uL (0.00-0.10); ADD DIFF? NO; ADD MORPH? NO; ADD SCAN? NO; ATYPICAL LYMPHOCYTE FLAG 10 (0-99); FRAGMENT RBC FLAG 0 (0-99); HEMATOCRIT 39.1 % (38.0-47.0); HEMOGLOBIN 13.4 g/dL (12.6-16.3); LEFT SHIFT FLG 0 (0-99); LIPEMIA HEMOLYSIS FLAG 90 (0-99); MEAN CELL HEMOGLOBIN 32.7 pg (27.9-34.1); MEAN CELL HEMOGLOBIN CONCENTR. 34.3 g/dL (32.4-36.7); MEAN CELL VOLUME 95.4 fL (81.5-99.8); MEAN PLATELET VOLUME 9.2 fL (8.7-11.7); PLATELET CLUMPS FLAG 0 (0-99); PLATELET COUNT 277 10^3/uL (150-400); RED CELL DISTRIBUTION WIDTH 12.8 % (11.5-15.2)
[2017-04-20 13:17] VITALS: TEMP 98.1
[2017-04-20 13:26] LABS: ANION GAP 13 mEq/L (8-16); CALCIUM 9.8 mg/dL (8.5-10.4); CARBON DIOXIDE 22 mEq/l (22-31); CHLORIDE 109 mEq/L (97-110); CREATININE 0.6 mg/dL (0.6-1.0); ETHANOL SERUM < 10 mg/dL (0-10); GLOMERULAR FILTRATION RATE > 60; GLUCOSE 96 mg/dL (70-100); POTASSIUM 3.7 mEq/L (3.5-5.2); SODIUM 144 mEq/L (134-144)
[2017-04-20 16:28] VITALS: BP 127/79; PULSE 82; RESP 15; O2SAT 97
== END 2017-04-20 16:25 | disposition home or self-care (01) ==
LOC: EDUNIT#
DX: F32.2 Major depressive disorder, single episode, severe without psychotic features (principal)
CPT/HCPCS: 80305; G0480

== ENCOUNTER 2017-06-07 14:10 | Day surgery (SDC) | payer MEDICAID ==
[2017-06-07] MEDS ORDERED: TRIAMCINOLONE ACETONIDE 200 MG/5 ML MDV IM ONE (15:04)
[2017-06-07] MEDS ORDERED: IOPAMIDOL (ISOVUE-M 300) 15 ML VIAL ONE (15:04)
== END 2017-06-07 15:47 | disposition home or self-care (01) ==
LOC: FIMAGING 14:10
PROVIDERS: ATTEND Family Medicine
PROC: 3E0R33Z Introduction of Anti-inflammatory into Spinal Canal, Percutaneous Approach (ICD-10-PCS; principal; 2017-06-07)
PROC: 3E0R3KZ Introduction of Other Diagnostic Substance into Spinal Canal, Percutaneous Approach (ICD-10-PCS; principal; 2017-06-07)
DX: M50.90 Cervical disc disorder, unspecified, unspecified cervical region (principal); F41.9 Anxiety disorder, unspecified; F33.2 Major depressive disorder, recurrent severe without psychotic features; F51.04 Psychophysiologic insomnia; G47.33 Obstructive sleep apnea (adult) (pediatric)
CPT/HCPCS: J3301; Q9967

== ENCOUNTER → 2017-06-27 | Outpatient (CLI) | payer MEDICAID | LOC: FIMAGING 14:33 | PROVIDERS: ATTEND Family Medicine | DX: Z12.31 Encounter for screening mammogram for malignant neoplasm of breast (principal) | CPT/HCPCS: G0202 ==

== ENCOUNTER → 2017-06-30 | Outpatient (CLI) | payer MEDICAID | LOC: FIMAGING 13:58 | PROVIDERS: ATTEND Family Medicine | DX: M19.071 Primary osteoarthritis, right ankle and foot (principal) ==

== ENCOUNTER → 2017-09-08 | Outpatient (CLI) | payer MEDICAID | LOC: FCPNEURO 20:00 | PROVIDERS: ATTEND Psychiatry & Neurology Sleep Medicine | DX: G47.33 Obstructive sleep apnea (adult) (pediatric) (principal); G47.39 Other sleep apnea ==

== ENCOUNTER → 2017-11-26 | Outpatient (CLI) | payer MEDICAID | LOC: FCPNEURO 20:00 | PROVIDERS: ATTEND Psychiatry & Neurology Sleep Medicine | DX: G47.33 Obstructive sleep apnea (adult) (pediatric) (principal); G47.31 Primary central sleep apnea ==

== ENCOUNTER → 2018-01-04 | Outpatient (CLI) | payer MEDICAID | LOC: FIMAGING 14:10 | PROVIDERS: ATTEND Family Medicine | DX: M25.521 Pain in right elbow (principal) ==